=== PATIENT | female | born 1950 | race Caucasian/White ===

== ENCOUNTER → 2018-07-11 | Outpatient (CLI) | payer OTHER ==
[~2018-07-11] VITALS: Ht 165.1 cm; Wt 63.5 kg
[~2018-07-11] MED LIST: ASPIR 8181 MG PO; CLARITIN10 MG PO; LISINOPRIL-HCT1 EACH PO; OMEPRAZOLE 20 M20 M1 PO; TOPROL XL25 MG PO; ZOCOR20 MG PO
--- NOTE | ~2018-07-11 | P ---
[facility] [place] [address] PROCEDURE REPORT Name: ATUL TERAN Room #: [facility]#: [id number] Admission: 07/11/18 ������������������ Attend Phys: Kieran Alvarado MD Discharge: ������������������ Date of : 54 Report #: [id number] THIS REPORT FOR: //name// CC: Kieran Ramirez MD DATE OF SERVICE: 07/11/2018 OUTPATIENT COLONOSCOPY: BRIEF HISTORY: The patient is a 67-year-old woman for average risk screening colonoscopy. PREOPERATIVE DIAGNOSIS: Average risk screening colonoscopy. POSTOPERATIVE DIAGNOSIS: Moderate sigmoid diverticulosis coli. MEDICATIONS: Deep sedation with propofol per anesthesia. SPECIMEN: None. ESTIMATED BLOOD LOSS: None. PROCEDURE: Colonoscopy to cecum and terminal ileum. FINDINGS: Prior to propofol sedation, procedure of colonoscopy discussed with the patient as well as potential risks and its complications. She indicates she understands and desires to proceed. DESCRIPTION OF PROCEDURE: With the patient in left lateral decubitus position, digital examination was completed, which revealed no abnormalities. Subsequently, the Olympus video colonoscope was introduced in the rectum, advanced under direct vision to the cecum. Done with minimal difficulty. The cecum was identified by the ileocecal valve and the appendiceal orifice. I was able to visualize the distal segment of terminal ileum, which was inspected and noted to be unremarkable. At that point, the scope was slowly withdrawn and careful circumferential views obtained including retroflexing the scope in the ascending colon. Upon slow withdrawal of the scope, the prep was excellent. Mucosa was within normal limits, normal vascular pattern, normal light reflex. No neoplastic or inflammatory lesions were seen. The mucosa throughout the entire colon was normal. The only abnormality noted was moderate sigmoid diverticular disease without endoscopic evidence of diverticulitis. The scope was withdrawn to the rectum and no abnormalities were seen. Upon retroflexion, no abnormalities were seen. The scope was withdrawn. The patient tolerated the procedure well. [facility] [address] [address] PROCEDURE REPORT Name: ATUL TERAN Room #: REG [facility]#: [id number] Admission: 07/11/18 ������������������ Attend Phys: Kieran Alvarado MD Discharge: ������������������ Date of : 54 Report #: [id number] CONDITION OF THE PATIENT UPON DISCHARGE: Following procedure, the patient was drowsy. She will be discharged home when fully ambulatory. INSTRUCTIONS TO THE PATIENT AND FAMILY AT THE TIME OF DISCHARGE: No neoplastic lesions seen today. This is a negative average risk screening colonoscopy. Suggest followup colon exam in 10 years. Last colonoscopy was in 2006. Withdrawal time from the cecum was 12 minutes and 6 seconds. ��������������������������������������������� ���������������������������������������� By: ��������������������������������������������� [id number] Kieran Alvarado MD /nt
== END | disposition home or self-care (01) ==
LOC: GI 06:25
DX: Z12.11 Encounter for screening for malignant neoplasm of colon (principal); K57.30 Diverticulosis of large intestine without perforation or abscess without bleeding; I10 Essential (primary) hypertension; K21.9 Gastro-esophageal reflux disease without esophagitis; Z90.49 Acquired absence of other specified parts of digestive tract; Z90.710 Acquired absence of both cervix and uterus; Z98.890 Other specified postprocedural states; Z79.899 Other long term (current) drug therapy; Z88.2 Allergy status to sulfonamides; Z79.82 Long term (current) use of aspirin
CPT/HCPCS: 62110; 62900